=== PATIENT | female | born 1985 | race Caucasian/White ===

== ENCOUNTER 2017-12-29 14:12 | Emergency (ER) | payer MEDICAID | END 2017-12-29 15:00 | disposition home or self-care (01) | LOC: E/R 15:00 | DX: J06.9 Acute upper respiratory infection, unspecified (principal) | CPT/HCPCS: 99284; Z7502 ==

== ENCOUNTER 2019-02-05 08:11 | Emergency (ER) | payer MEDICAID | END 2019-02-05 11:10 | disposition home or self-care (01) | LOC: FTE 08:11 | DX: M54.2 Cervicalgia (principal); I10 Essential (primary) hypertension | CPT/HCPCS: 72040; 73000; 73030; 73562; 99284-25 ==

== ENCOUNTER 2019-04-07 12:44 | Emergency (ER) | payer MEDICAID ==
[2019-04-07] MEDS: METHOCARBAMOL 750 MG TAB PO (16:12)
[2019-04-07] MEDS: IBUPROFEN 800 MG TAB PO (16:12)
== END 2019-04-07 17:58 | disposition home or self-care (01) ==
LOC: FTE 12:44
DX: M25.511 Pain in right shoulder (principal); M25.512 Pain in left shoulder
CPT/HCPCS: 73030; 99283-25